=== PATIENT | male | born 1950 | race Caucasian/White ===

== ENCOUNTER 2018-03-24 19:33 | Emergency (ER) | payer OTHER ==
[~2018-03-24] VITALS: Ht 185.4 cm; Wt 95.3 kg
[2018-03-24 19:52] LABS: URINE BILIRUBIN NEGATIVE (Negative); URINE BLOOD NEGATIVE (Negative); URINE CLARITY CLEAR; URINE COLOR YELLOW; URINE GLUCOSE-RANDOM NEGATIVE (Negative); URINE KETONES NEGATIVE (Negative); URINE LEUKOCYTES-REFLEX NEGATIVE (Negative); URINE NITRITE-REFLEX NEGATIVE (Negative); URINE PROTEIN NEGATIVE (Negative); URINE UROBILINOGEN 0.2 E.U./dl (0.2-1.0)
[2018-03-24] MEDS ORDERED: FLONASE 0.05%50 MCG NASAL (20:39)
[2018-03-24] MEDS ORDERED: AUGMENTIN 875-1 EACH PO (20:39)
== END 2018-03-24 21:00 | disposition home or self-care (01) ==
LOC: M.ERS 19:33
PROVIDERS: Nurse Practitioner Family
DX: J32.9 Chronic sinusitis, unspecified (principal); J44.9 Chronic obstructive pulmonary disease, unspecified

== ENCOUNTER 2019-08-19 10:34 | Emergency (ER) | payer OTHER ==
[~2019-08-19] VITALS: Ht 185.4 cm; Wt 95.3 kg
[~2019-08-19 10:34] MED LIST: AUGMENTIN 875-1 EACH PO; FLONASE 0.05%50 MCG NASAL
[2019-08-19] MEDS ORDERED: FLOMAX0.4 MG PO (10:46)
[2019-08-19] MEDS ORDERED: LIPITOR 40 MG T40 M1 PO (10:46)
[2019-08-19] MEDS ORDERED: ZESTRIL20 MG PO (10:47)
[2019-08-19] MEDS ORDERED: HYDROCHLOROTHIA25 M2 PO (10:47)
[2019-08-19] MEDS ORDERED: LO-DOSE ASPIRIN81 M1 PO (10:47)
[2019-08-19 10:57] LABS: URINE BILIRUBIN NEGATIVE (Negative); URINE BLOOD NEGATIVE (Negative); URINE CLARITY CLEAR; URINE COLOR YELLOW; URINE GLUCOSE-RANDOM NEGATIVE (Negative); URINE KETONES NEGATIVE (Negative); URINE LEUKOCYTES-REFLEX NEGATIVE (Negative); URINE NITRITE-REFLEX NEGATIVE (Negative); URINE PROTEIN NEGATIVE (Negative); URINE SPECIFIC GRAVITY 1.015 (1.005-1.030); URINE UROBILINOGEN 0.2 E.U./dl (0.2-1.0)
[2019-08-19 11:08] LABS: ABSOLUTE BASOPHILS 0.1 thou/uL (0.0-0.2); ABSOLUTE EOSINOPHILS 0.2 thou/uL (0.0-0.7); ABSOLUTE LYMPHOCYTES 1.9 thou/uL (0.8-5.3); ABSOLUTE MONOCYTES 0.7 thou/uL (0.0-1.2); ABSOLUTE NEUTROPHILS 8.1 thou/uL (1.6-8.1); BASOPHILS 1.2 %; EOSINOPHILS 1.7 %; HEMATOCRIT 44.6 % (42.0-52.0); HEMOGLOBIN 15.5 gm/dL (14.0-18.0); LYMPHOCYTES 17.5 %; MCHC 34.8 g/dL (28.0-37.0); MONOCYTES 6.1 %; NUCLEATED RBCS 0 /100WBC; PLATELET COUNT* 327 thou/uL (150-400); POLYS 73.5 %; RBC 5.01 mil/uL (4.50-6.00); RDW-CV 13.9 % (10.5-14.5)
[2019-08-19 11:23] LABS: APTT 27.4 Seconds (25.0-31.3); PROTIME 10.1 Seconds (9.20-11.50)
[2019-08-19 11:27] LABS: CALCIUM 8.3 mg/dL (8.5-10.1); CREATININE 0.9 mg/dL (0.6-1.3); POTASSIUM 3.2 mmol/L (3.5-5.1)
[2019-08-19 11:38] LABS: ALBUMIN 3.3 g/dL (3.4-5.0); TOTAL BILIRUBIN 0.5 mg/dL (<0.1-1.0); TOTAL PROTEIN 7.3 g/dL (6.4-8.2)
[2019-08-19 12:45] VITALS: BP 103/51
--- NOTE | 2019-08-19 15:22 | EKG ---
[place] [address] ELECTROCARDIOGRAM REPORT Name: YASIR JAQUEZ [id number] Admission: 08/19/19 Attend Phys: Discharge: 08/19/19 Date of : 54 Report #: [id number] THIS REPORT FOR: //name// [facility] ED Test Date: 2019-08-19 Test Time: 10:54:21 Pat Name: YASIR JAQUEZ Department: Room: Gender: M [employer] Helper: [facility] : 1950 Requested By: [place] Order Number: [id number] MD: Flo Kulkarni Measurements Intervals [place] Rate: 86 P: 80 [place]: 190 QRS: 59 QRSD: 109 T: 57 QT: 373 QTc: 446 Interpretive Statements Sinus rhythm No previous ECG available for comparison Electronically Signed On 08-19-2019 15:22:11 [employer] by Flo Kulkarni [email or web address] <ELECTRONICALLY SIGNED> By: Flo Kulkarni MD, [facility] 08/19/19 1522 1054 1054 Flo Kulkarni MD, FACC /EPI
== END 2019-08-19 12:48 | disposition home or self-care (01) ==
LOC: M.ERS 10:34
PROVIDERS: Family Medicine
DX: R42 Dizziness and giddiness (principal); J44.9 Chronic obstructive pulmonary disease, unspecified; I10 Essential (primary) hypertension; F17.210 Nicotine dependence, cigarettes, uncomplicated